=== PATIENT | female | born 1965 | race Caucasian/White ===

== ENCOUNTER 2021-03-28 11:30 | Emergency (ER) | payer OTHER ==
[2021-03-28 12:09] LABS: BASOPHIL 0.9 % (0-2); EOSINOPHIL 1.3 % (0-5); HCT 40.5 % (37.0-47.0); HGB 13.4 g/dl (12.5-16.0); LYMPHOCYTE 26.2 % (15-48); MCHC 33.1 g/dL (32.0-36.0); MCV 96.7 fL (78.0-100.0); MONOCYTE 10.2 % (0-12); MPV 8.8 fL (6.0-9.5); NEUTROPHIL 61.1 % (41-80); NRBC 0; PLT 310 K/uL (150-400); RBC 4.19 M/uL (4.20-5.40); RDW 13.2 % (11.5-14.0); WBC 6.8 K/uL (4.0-10.5)
[2021-03-28 12:46] LABS: ALBUMIN 3.3 g/dL (3.4-5.0); BILIRUBIN - TOTAL 0.2 mg/dL (0.2-1.0); BUN/CREAT RATIO (CALC) 23.4 RATIO; CREATININE 0.77 mg/dL (0.51-0.95); GLOBULIN (CALCULATION) 3.1 g/dL; POTASSIUM 3.6 mmol/L (3.5-5.1); TOTAL PROTEIN 6.4 g/dL (6.4-8.2)
== END 2021-03-28 13:00 | disposition home or self-care (01) ==
LOC: FER 11:30
PROVIDERS: Emergency Medicine
DX: R42 Dizziness and giddiness (principal)
CPT/HCPCS: 36415; 80053; 85025; 93005